=== PATIENT | male | born 1970 | race Caucasian/White ===

== ENCOUNTER 2017-09-24 10:51 | Day surgery (SDC) | payer OTHER ==
[2017-09-21 11:48] VITALS: BMI 27.4
--- NOTE | 2017-09-24 14:03 | OP ---
DATE OF PROCEDURE: 09/24/2017 PROCEDURE: Colonoscopy. PHYSICIAN: Michel Lopez M.D. PAIN MEDICATIONS: Given by Anesthesiology Department. PREPROCEDURE DIAGNOSES: Family history of early colon cancer. POSTPROCEDURE DIAGNOSIS: Normal colon exam. PROCEDURE IN DETAIL: Written consent was obtained prior to procedure. After adequate sedation, a re ctal exam was performed and was normal. The endoscope was advanced to the cecum. The quality of the bowel prep was good. The cecum, ascending colon, hepatic flexure, transverse colon, splenic flexure , descending colon appeared normal. A few scattered small diverticula were noted in the sigmoid colo n. Retroflexion in the rectal vault was normal. The patient tolerated the procedure well. ASSESSMENT: 1. Normal colon exam. 2. Sigmoid diverticula. RECOMMENDATIONS: Repeat screening in 5 years.
[2017-09-24] MEDS ORDERED: PROPOFOL 200 MG/20 ML VIAL ONE (14:38)
== END 2017-09-24 14:25 | disposition home or self-care (01) ==
LOC: SDC 10:51
PROVIDERS: ATTEND Internal Medicine Gastroenterology
PROC: 0DJD8ZZ Inspection of Lower Intestinal Tract, Via Natural or Artificial Opening Endoscopic (ICD-10-PCS; principal; 2017-09-24)
DX: Z12.11 Encounter for screening for malignant neoplasm of colon (principal); K57.30 Diverticulosis of large intestine without perforation or abscess without bleeding; M19.90 Unspecified osteoarthritis, unspecified site; M43.10 Spondylolisthesis, site unspecified; Z79.51 Long term (current) use of inhaled steroids; Z91.09 Other allergy status, other than to drugs and biological substances; Z98.890 Other specified postprocedural states; Z80.0 Family history of malignant neoplasm of digestive organs
CPT/HCPCS: J2704

== ENCOUNTER 2022-10-12 06:17 | Day surgery (SDC) | payer BC ==
[2022-10-11 12:35] VITALS: BMI 26.4
[2022-10-12] MEDS ORDERED: Lidocaine 1% PF 5 ML VIAL ONE (07:30)
[2022-10-12] MEDS ORDERED: PROPOFOL 200 MG/20 ML VIAL ONE (07:30)
[2022-10-12] MEDS ORDERED: ePHEDrine 50 MG/ML VIAL ONE (07:30)
== END 2022-10-12 08:29 | disposition home or self-care (01) ==
LOC: SDC 06:17
PROVIDERS: ATTEND Internal Medicine Gastroenterology
PROC: 0DJD8ZZ Inspection of Lower Intestinal Tract, Via Natural or Artificial Opening Endoscopic (ICD-10-PCS; principal; 2022-10-12)
DX: Z12.11 Encounter for screening for malignant neoplasm of colon (principal); K57.30 Diverticulosis of large intestine without perforation or abscess without bleeding; Z80.0 Family history of malignant neoplasm of digestive organs; Z79.1 Long term (current) use of non-steroidal anti-inflammatories (NSAID)
CPT/HCPCS: J2704; J3490